=== PATIENT | female | born 1980 | race Caucasian/White ===

== ENCOUNTER → 2018-01-09 | Outpatient (CLI) | payer BC ==
[~2018-01-09] MED LIST: ASCO100T5 PO; BIOT25005 PO; BORON PO; CALC-316 PO; CALCIUM PO; CHOL5000 PO; CYAN25009 PO; HYDR-3240 PO; MAGNESIUM PO; ONDA4TAB10 PO; ONDANSETRON ODT 4 MG ONE; POTA99TA8 PO; RITU10VI INJ; SELE200T10 PO; [UNRECOGNIZED DRUG - OTHER] PO
== END | disposition home or self-care (01) ==
LOC: STAR 10:37
PROVIDERS: ATTEND Surgery
DX: Z02.9 Encounter for administrative examinations, unspecified (principal)

== ENCOUNTER 2018-01-14 10:26 | Observation (INO) | payer BC ==
[~2018-01-14] VITALS: Ht 177.8 cm; Wt 108.7 kg
[~2018-01-14 10:26] MED LIST changes: +BUPIVACAINE/PF 0.5% ONE; +EPINEPHRINE 1 MG/ML, 1ML ONE; -HYDR-3240 PO; +ISOSULFAN BLUE 10 MG/ML, 5ML IV ONE; -ONDA4TAB10 PO; -ONDANSETRON ODT 4 MG ONE
[2018-01-14] MEDS ORDERED: LACTATED RINGERS 1,000 ML IV SCH ×2 (10:48→20:30)
[2018-01-14] MEDS ORDERED: LIDOCAINE-MPF 1%, 2ML INFIL ONE (11:00)
[2018-01-14 11:03] LABS: HCG UR SG 1.024 (1.003-1.030)
[2018-01-14] MEDS ORDERED: APREPITANT 40 MG CAPSULE PO ONE (12:30)
[2018-01-14] MEDS ORDERED: BUPIVACAINE/PF 0.5% ONE (12:40)
[2018-01-14] MEDS ORDERED: EPINEPHRINE 1 MG/ML, 1ML ONE (12:40)
[2018-01-14] MEDS ORDERED: PROPOFOL 10 MG/ML, 20ML ONE ×2 (13:49→14:51)
[2018-01-14] MEDS ORDERED: FENTANYL PF 100 MCG/2ML ONE ×3 (13:50→16:17)
[2018-01-14] MEDS ORDERED: OXYcodone 5 MG/5 ML ORAL.SOL UDC PO PRN (14:30)
[2018-01-14] MEDS ORDERED: ACETAMINOPHEN 325 MG TABLET PO PRN (14:30)
[2018-01-14] MEDS ORDERED: HYDROcodone/APAP 7.5-325MG/15ML UDC PO PRN (14:30)
[2018-01-14] MEDS ORDERED: MEPERIDINE/PF 25MG/0.5ML IVPush PRN (14:30)
[2018-01-14] MEDS ORDERED: MORPHINE SULFATE 4 MG/ML, 1ML IVPush PRN ×2 (14:30→20:30)
[2018-01-14] MEDS ORDERED: PROPOFOL 50 ML ONE (15:22)
[2018-01-14] MEDS ORDERED: OXYcodone 5 MG/5 ML ORAL.SOL UDC ONE (15:49)
[2018-01-14] MEDS ORDERED: HYDROmorphone 2 MG/ML, 1ML ONE (15:49)
[2018-01-14] MEDS: HYDROmorphone 1 MG/ML, 1ML IV PRN ×4 (15:51→16:09)
[2018-01-14] MEDS ORDERED: CEFAZOLIN 1,000 MG ONE (15:59)
[2018-01-14] MEDS: FENTANYL PF 100 MCG/2ML IV PRN ×3 (16:06→16:30)
[2018-01-14] MEDS ORDERED: ONDANSETRON 2MG/ML, 2ML ONE (19:19)
[2018-01-14] MEDS ORDERED: ONDANSETRON 2MG/ML, 2ML IVPush PRN ×2 (19:30→20:30)
[2018-01-14] MEDS ORDERED: HYDROcodone/APAP 5/325 TABLET PO PRN (20:30)
[2018-01-14 20:35] VITALS: BP 113/73
[2018-01-15 02:09] VITALS: BP 109/72
[2018-01-15 08:00] VITALS: BP 118/68
[2018-01-15] MEDS ORDERED: CALCIUM CARBONATE 500 MG TABLET PO SCH (09:00)
[2018-01-15] MEDS ORDERED: MAGNESIUM CHLORIDE 64 MG TABLET.DR PO SCH (09:00)
[2018-01-15] MEDS ORDERED: CHOLECALCIFEROL 5,000 UNIT TAB PO SCH (09:00)
[2018-01-15] MEDS ORDERED: CYANOCOBALAMIN 1,000 MCG TABLET PO SCH (09:00)
[2018-01-15] MEDS ORDERED: ONDA4TAB10 PO (10:02)
[2018-01-15] MEDS ORDERED: HYDR-3240 PO (10:41)
[2018-01-15] MEDS ORDERED: ONDANSETRON ODT 4 MG PO PRN (11:00)
== END 2018-01-15 10:51 | disposition home or self-care (01) ==
LOC: OUT 10:26 → EDSTATUS 13:30 → 4NOR 19:50 → OUT 20:28 → DCLOUNGE 01-15 10:39
PROVIDERS: ADMIT Surgery; ATTEND Surgery
DX: D05.12 Intraductal carcinoma in situ of left breast (principal); D24.1 Benign neoplasm of right breast; N60.91 Unspecified benign mammary dysplasia of right breast; N60.41 Mammary duct ectasia of right breast; Z90.13 Acquired absence of bilateral breasts and nipples
CPT/HCPCS: 19303; 38525; 38792; 81025; 88307; 88331; 88333; A9541; G0378; J0171; J0690; J1170; J2405; J2704; J3010; J3490; J8501

== ENCOUNTER → 2018-03-15 | Outpatient (CLI) | payer BC ==
[~2018-03-15] MED LIST changes: -BUPIVACAINE/PF 0.5% ONE; -EPINEPHRINE 1 MG/ML, 1ML ONE; +HYDR-3240 PO; -ISOSULFAN BLUE 10 MG/ML, 5ML IV ONE; +OMNIPAQUE 350 MG/ML, 100ML BOTTLE ONE; +ONDA4TAB10 PO
== END | disposition home or self-care (01) ==
LOC: PETCFH 09:53
PROVIDERS: ATTEND Internal Medicine Hematology & Oncology
DX: C50.412 Malignant neoplasm of upper-outer quadrant of left female breast (principal)
CPT/HCPCS: 71260; 74177; 78306; A9503; Q9967